=== PATIENT | male | born 1990 | race Caucasian/White ===

== ENCOUNTER 2020-03-05 22:32 | Emergency (ER) | payer OTHER ==
[2020-03-05] MEDS ORDERED: ACETAMINOPHEN 325 MG TABLET PO ONE (23:20)
--- NOTE | 2020-03-05 23:54 | ER Document Report ---
ED Medical Screen (RME) - General Chief Complaint: Arm Injury Stated Complaint: INJURY TO ARM Time Seen by Provider: 03/05/20 23:19 Mode of Arrival: Ambulatory Information source: Patient Notes: HPI; 29-year-old male presents to the emergency room complaining of right forearm pain. Patient states that he was working on his car when a bar slipped hitting him on his right forearm. States he heard a "pop" as it hit his arm. Denies any previous trauma or injury to his arm. Patient is right-handed. Has been taking naproxen without relief. PE: Alert and oriented x3. Mild distress noted. There is tenderness on palpation to the mid aspect of the right forearm. Painful range of motion with flexion, extension internal and external rotation to the right elbow right elbow is nontender to palpation. Lungs: Clear to auscultation without rales, rhonchi, wheezes. Heart: Regular rate and rhythm without murmurs, rubs, gallops. I have greeted and performed a rapid initial assessment of this patient. A comprehensive ED assessment and evaluation of the patient, analysis of test results and completion of the medical decision making process will be conducted by additional ED providers. I have specifically instructed the patient or family members with the patient to immediately return to any nursing staff should anything change in the patient's condition or with their chief complaint. TRAVEL OUTSIDE OF THE [place] IN LAST 30 DAYS: No - Related Data Allergies/Adverse Reactions: No Known Allergies Allergy (Verified 03/05/20 23:24) Past Medical History - Social History Chew tobacco use (# tins/day): No Frequency of alcohol use: None Drug Abuse: None Physical Exam - Vital signs Vitals: Temp Pulse Resp BP Pulse Ox 98.7 F 99 18 137/90 H 99 03/05/20 22:40 03/05/20 22:40 03/05/20 22:40 03/05/20 22:40 03/05/20 22:40 Course - Vital Signs Vital signs: Temp Pulse Resp BP Pulse Ox 98.7 F 99 18 137/90 H 99 03/05/20 22:40 03/05/20 22:40 03/05/20 22:40 03/05/20 22:40 03/05/20 22:40
[2020-03-06] MEDS ORDERED: HYDROCODONE/ACETAMINOPHEN 5-325 MG (6 TAB/ER DISP) PO PRN (00:36)
--- NOTE | 2020-03-06 00:39 | ER Document Report ---
HPI - HPI Patient complains to provider of: right arm injury Time Seen by Provider: 03/05/20 23:19 Pain Level: 4 Context: 29-year-old male presents to the emergency room after injuring his right arm while working on his car. States that a bar slipped back hitting him to his right forearm and he heard a "pop" to his right forearm. Denies any trauma history to his arm in the past. Took naproxen without relief. Drove self to the emergency room. Patient is right-handed. Associated Symptoms: None Exacerbated by: Movement Relieved by: Denies Similar symptoms previously: No Recently seen / treated by doctor: No - ROS Systems Reviewed and Negative: Yes All other systems reviewed and negative - NEURO Neurology: DENIES: Weakness - MUSCULOSKELETAL Musculoskeletal: REPORTS: Extremity pain - DERM Skin Color: Normal Skin Problems: None Past Medical History - General Information source: Patient - Social History Smoking Status: Current Some Day Smoker Chew tobacco use (# tins/day): No Frequency of alcohol use: None Drug Abuse: None Family History: Reviewed & Not Pertinent Vertical Provider Document - CONSTITUTIONAL Agree With Documented VS: Yes Exam Limitations: No Limitations General Appearance: Mild Distress - INFECTION CONTROL TRAVEL OUTSIDE OF THE [place] IN LAST 30 DAYS: No - HEENT HEENT: Atraumatic, Normocephalic - NECK Neck: Normal Inspection, Supple, Thyroid Normal - RESPIRATORY Respiratory: Breath Sounds Normal, No Respiratory Distress, Chest Non-Tender - CARDIOVASCULAR Cardiovascular: Regular Rate, Regular Rhythm, No Murmur - BACK Back: Normal Inspection - MUSCULOSKELETAL/EXTREMETIES Musculoskeletal/Extremeties: Tender - Tenderness on palpation to the mid right forearm along the ulnar aspect. There is no obvious deformity noted. Patient has painful range of motion with flexion extension of the right elbow as well as internal and external rotation of the right forearm. Elbow was nontender to palpation. No obvious deformity. Negative right shoulder, negative right wrist. - NEURO Level of Consciousness: Awake, Alert, Appropriate Motor/Sensory: No Motor Deficit, No Sensory Deficit Notes: Positive right radial pulse. Capillary refill less than 3 seconds. - DERM Integumentary: Warm, Dry, No Rash Course - Re-evaluation Re-evalutation: 03/06/20 00:38 Reviewed x-ray results with patient. Patient with a mildly displaced fracture of the distal third of the right ulna. Patient aware of need for a splint which will be provided in the emergency room. Along with a sling. He was counseled on the importance of an outpatient follow-up with orthopedics. On-call physician was provided. Will be discharged home with [address] [place] to go. Splint and sling applied by nursing staff as documented rest, ice, elevate right arm. Patient was given strict return to the emergency room guidelines. Return for any new or worsening symptoms. All questions were answered. Patient verbalized understanding and agrees with plan of care. 03/06/20 01:03 - Vital Signs Vital signs: Temp Pulse Resp BP Pulse Ox 98.7 F 99 18 137/90 H 99 03/05/20 22:40 03/05/20 22:40 03/05/20 22:40 03/05/20 22:40 03/05/20 22:40 - Diagnostic Test Radiology reviewed: Reports reviewed Procedures - Immobilization Right Arm Time completed: 01:03 Pre-Proc Neuro Vasc Exam: Normal Immobilizer type: Sugar tong, Sling Performed by: PCT Post-Proc Neuro Vasc Exam: Normal Alignment checked and good: Yes Discharge - Discharge Clinical Impression: Displaced fracture of distal end of right ulna Condition: Stable Disposition: HOME, SELF-CARE Instructions: Fracture ([facility]), Temporary Splint ([facility]) Additional Instructions: Rest, ice, elevate your right arm as frequently as possible. Take pain medication as prescribed. Call orthopedics on Sunday for an outpatient follow- up appointment. Return to the emergency room for any new or worsening symptoms. Referrals: DENISE IRVIN MD [ACTIVE STAFF] - Follow up in 3-5 days (Call on Sunday for an outpatient follow-up appointment.)
--- NOTE | 2020-03-06 00:43 | RADIOLOGY REPORT (SQ) ---
CLINICAL HISTORY: injury COMPARISON: None. TECHNIQUE: XR FOREARM 2 VIEWS 03/05/2020 11:19 PM CDT FINDINGS: There is a mildly displaced fracture of the distal third of the ulna. Joint spaces are preserved. Soft tissues are unremarkable. IMPRESSION: Distal ulnar fracture.
[2020-03-06 01:35] VITALS: BP 133/85
== END 2020-03-06 01:28 | disposition home or self-care (01) ==
LOC: ER 22:32
DX: S52.601A Unspecified fracture of lower end of right ulna, initial encounter for closed fracture (principal); W20.8XXA Other cause of strike by thrown, projected or falling object, initial encounter; Y93.89 Activity, other specified; F17.200 Nicotine dependence, unspecified, uncomplicated
CPT/HCPCS: 99284